=== PATIENT | female | born 1995 | race Caucasian/White ===

== ENCOUNTER 2018-11-23 18:14 | Emergency (ER) | payer MEDICAID ==
[~2018-11-23] VITALS: Ht 162.6 cm; Wt 50.0 kg
[2018-11-23 18:56] LABS: BASOPHILS % (AUTO) 0.4 % (0.0-2.0); EOSINOPHILS % (AUTO) 0.4 % (1.0-6.0); HEMATOCRIT 35.2 % (36-46); HEMOGLOBIN 12.5 g/dL (12.0-16.0); LYMPHOCYTES # (AUTO) 2.5 K/uL (1.0-4.8); LYMPHOCYTES % (AUTO) 23.6 % (22.0-44.0); MEAN CORPUSCULAR HEMOGLOBIN 28.2 pg (26.0-34.0); MEAN CORPUSCULAR HGB CONC 35.6 G/dL (31.0-37.0); MEAN CORPUSCULAR VOLUME 79 fL (80-100); MONOCYTES # (AUTO) 0.9 K/uL (0.1-1.0); MONOCYTES % (AUTO) 8.3 % (2.0-9.0); NEUTROPHILS # (AUTO) 7.1 K/uL (1.8-7.7); NEUTROPHILS % (AUTO) 67.3 % (40.0-70.0); PLATELET COUNT (AUTO) 276 K/uL (150-450); RED BLOOD CELL COUNT(AUTO) 4.44 MIL/uL (4.00-5.20); RED CELL DISTRIBUTION WIDTH 15.3 % (11.5-14.5)
[2018-11-23 21:45] VITALS: BP 125/91
== END 2018-11-23 22:15 | disposition home or self-care (01) ==
LOC: EMS 18:15
DX: O20.9 Hemorrhage in early pregnancy, unspecified (principal); O26.891 Other specified pregnancy related conditions, first trimester; Z3A.01 Less than 8 weeks gestation of pregnancy
CPT/HCPCS: 76801; 76817; 86901

== ENCOUNTER 2019-02-10 23:32 | Emergency (ER) | payer MEDICAID ==
[~2019-02-10] VITALS: Ht 162.6 cm; Wt 45.9 kg
[2019-02-10 23:34] VITALS: BP 102/69
[2019-02-10] MEDS ORDERED: DOXY25TA29 PO (23:40)
[2019-02-10] MEDS ORDERED: PREN1TAB80 PO (23:40)
== END 2019-02-11 00:20 | disposition left against medical advice (07) ==
LOC: EMS 23:34
DX: O20.9 Hemorrhage in early pregnancy, unspecified (principal); O26.892 Other specified pregnancy related conditions, second trimester; R10.9 Unspecified abdominal pain; Z3A.18 18 weeks gestation of pregnancy; Z53.21 Procedure and treatment not carried out due to patient leaving prior to being seen by health care provider